=== PATIENT | female | born 1990 | race African-American/Black ===

== ENCOUNTER 2017-08-06 19:32 | Emergency (ER) | payer BC, MEDICAID ==
[~2017-08-06] VITALS: Ht 165.1 cm; Wt 104.0 kg
[2017-08-06 19:35] VITALS: BP 123/84
== END 2017-08-06 23:10 | disposition left against medical advice (07) ==
LOC: ER 19:42
DX: R51 Headache (principal); Z53.21 Procedure and treatment not carried out due to patient leaving prior to being seen by health care provider